=== PATIENT | male | born 1965 | race American Indian/Alaskan Native ===

== ENCOUNTER 2023-07-02 11:16 | Outpatient (CLI) | payer BC, OTHER ==
[~2023-07-02 11:16] MED LIST: ALBU18HF2 INH; ASPI-611 PO; ATOR10TA87 PO; CHOL100046 PO; CLOT10TR5 PO; ESZO1TAB11 PO; FENO134C21; FENO135C3 PO; FOLI-43 PO; GLIM2TAB6 PO; HYDR-3965 PO; HYDR5TAB PO; LANTUS SUBCUT; LORA10CA PO; MAGN400C PO; ONDA4TAB9 PO; OXYC-658 PO; PANT40TA54 PO; PROM25TA14 PO; SENN-267 PO; SITA1TAB6 PO
[2023-07-02 12:04] LABS: CREATININE 1.75 MG/DL (0.60-1.10); eGFR 40 ML/MIN
[2023-07-02] MEDS ORDERED: iohexol 300mg/ml 100ml inj. ONE (13:32)
== END 2023-07-02 23:59 | disposition home or self-care (01) ==
LOC: RAD 11:16
PROVIDERS: ATTEND Family Medicine
DX: U07.1 COVID-19 (principal); R91.8 Other nonspecific abnormal finding of lung field; R05.1 Acute cough; I25.10 Atherosclerotic heart disease of native coronary artery without angina pectoris; I70.0 Atherosclerosis of aorta; M47.814 Spondylosis without myelopathy or radiculopathy, thoracic region
CPT/HCPCS: 36415; 71260; 82565; J3490; Q9967